=== PATIENT | female | born 1945 | race Caucasian/White ===

== ENCOUNTER 2019-07-03 15:35 | Inpatient (IN) | payer MEDICARE ==
[~2019-07-03] VITALS: Ht 152.4 cm; Wt 125.7 kg
[2019-07-03] MEDS ORDERED: ACETAMINOPHEN 325 MG TAB PO ONE (16:39)
[2019-07-03 16:51] LABS: BILIRUBIN,URINE NEGATIVE (NEGATIVE); CLARITY,URINE SL CLOUDY (CLEAR); COLOR,URINE YELLOW (YELLOW); KETONES,URINE NEGATIVE (NEGATIVE); LEUKOCYTE ESTERASE ,URINE NEGATIVE (NEGATIVE); NITRITE,URINE NEGATIVE (NEGATIVE); PROTEIN,URINE DIPSTICK NEGATIVE (NEGATIVE); URINE UROBILINOGEN 0.2 mg/dL (0.2 - 1)
[2019-07-03 17:05] LABS: BACTERIA,URINE FEW /HPF; EPITHELIAL CELLS,URINE FEW /LPF
[2019-07-03] MEDS ORDERED: METHYLPREDNISOLONE SOD SUCC 125 MG/2ML VIAL IV STA (17:10)
[2019-07-03 17:14] LABS: BASOPHILS # (AUTO) 0.1 (0.0-0.1); BASOPHILS % 0.4 % (0.0-1.0); EOSINOPHILS # (AUTO) 0.1 (0.0-0.4); EOSINOPHILS % 0.3 % (0.0-6.0); HEMATOCRIT 36.2 % (34.2-44.1); HEMOGLOBIN 11.4 g/dL (12.0-16.0); LYMPHOCYTES # (AUTO) 2.3 (1.0-3.2); LYMPHOCYTES % 15.9 % (18.0-39.1); MEAN CORPUSCULAR HEMOGLOBIN 29.7 pg (28-32); MEAN CORPUSCULAR HGB CONC 31.5 g/dL (31-35); MEAN CORPUSCULAR VOLUME 94.3 fL (81-99); MONOCYTES # (AUTO) 1.4 (0.2-0.8); MONOCYTES % 9.2 % (4.4-11.3); NEUTROPHILS # (AUTO) 10.5 (2.1-6.9); NEUTROPHILS % 71.5 % (38.7-80.0); PLATELET COUNT 231 x10e3/uL (140-360); RED BLOOD COUNT 3.84 x10e6/uL (3.6-5.1); RED CELL DISTRIBUTION WIDTH 14.7 % (11.7-14.4)
[2019-07-03] MEDS ORDERED: DOXYCYCLINE 100MG/NS 100ML 100 ML IV SCH (17:15)
[2019-07-03] MEDS: CEFTRIAXONE SOD 1 GM/NS 50 ML 50 ML IV SCH (17:22)
[2019-07-03] MEDS: IPRATROPIUM BROMIDE 0.02% 2.5 ML NEB NEB SCH ×3 (17:30→23:00)
--- NOTE | 2019-07-03 17:30 | NUR ---
NOTIFIED RT ROLF PERES
[2019-07-03] MEDS: DOXYCYCLINE HYCLATE TABLET 100 MG TAB PO SCH (17:31)
[2019-07-03 17:34] LABS: ALBUMIN 2.6 g/dL (3.5-5.0); ALBUMIN/GLOBULIN RATIO 0.7 (0.8-2.0); ANION GAP 14.1 mmol/L (8-16); CALCIUM 9.3 mg/dL (8.4-10.2); CREATININE, SERUM 0.93 mg/dL (0.57-1.11); POTASSIUM 4.1 mmol/L (3.5-5.1)
--- OUTSIDE RECORDS SUMMARY | 2019-07-03 17:40 | XMS REPORT | Summary of Care ---
Author Author [facility] - Health Organization [facility] - Health Address Unknown Phone Unavailable Care Team Providers Care Senior Health Physics Technician Name Role Phone Lorelei Anderson Sandra PCP Encounter Details Care Team Description Date Type Department Doctor Unassigned, [place] [address] [place] [address] 05/01/2019 Orders Only [facility] [address] [place] [address] Allergies Comments Active Allergy Reactions Severity Noted Date Codeine Nausea and/or 02/01/2011 Vomiting Worsens Meniere's Syndrome. Gentamicin Other - See 09/05/2011 comments documented as of this encounter (statuses as of 05/01/2019) Medications End Date Status Medication Sig Dispensed Refills Start Date Active fluticasone-salmeterol Inhale 1 Puff 3 Each 6 (ADVAIR DISKUS) 250-50 every 12 3 mcg/dose inhalation disk (twelve) hours. Active triamterene-hydrochloroth Take by 0 iazid (MAXZIDE-25) mouth daily. 3 37.5-25 mg tablet Active levothyroxine (SYNTHROID) Take 25 mcg 0 25 mcg tablet by mouth every morning. Active montelukast (SINGULAIR) Take 10 mg by 0 10 mg tablet mouth at bedtime. Active ipratropium-albuterol Use 1 Ampule 0 (DUONEB) 0.5 mg-3 mg(2.5 as directed mg base)/3 mL nebulizer every 4 solution (four) hours as needed. Active Naproxen-Esomeprazole Mag Take 2 Tabs 0 (VIMOVO) 500-20 mg TbID by mouth 2 (two) times daily. Active pantoprazole (PROTONIX) Take 40 mg by 0 40 mg EC tablet mouth daily. Active meclizine (ANTIVERT) 12.5 Take 12.5 mg 0 mg tablet by mouth 3 (three) times daily as needed. Active benzonatate (TESSALON) Take 200 mg 0 200 mg capsule by mouth 3 (three) times daily as needed. Active Cholecalciferol, Vitamin Take 1,000 0 D3, (VITAMIN D3) 1,000 Units by unit Cap mouth daily. Active GLUCOSAM/MSM/CHOND/ZXM385 Take by 0 /HYAL mouth daily. (GLUCOSAMINE-CHONDROITIN- MSM ORAL) Active vitamin C with jevon hips Take 1,000 mg 0 (VITAMIN C) 1,000 mg by mouth tablet daily. Active cyclobenzaprine 10 mg Take 1 tablet 90 tablet 0 tabletIndications: Left by mouth 3 9 hip pain (three) times daily. Active aspirin 325 mg Take 1 tablet 60 tablet 0 tabletIndications: Left by mouth 2 9 hip pain (two) times daily. 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 Utility Encounter for adjustment of gastric lap band 11/09/2011 Morbid obesity 12/23/2006 GERD (gastroesophageal reflux disease) Status post gastric banding Generalized osteoarthrosis, unspecified site DJD (degenerative joint disease) of knee Overview: s/p R knee arthoplasty Asthma documented as of this encounter (statuses as of 05/01/2019) Immunizations Name Administration Dates Next Due Influenza Virus Vaccine 06/22/2016 documented as of this encounter Social History Date Tobacco Use Types Packs/Day Years Used Quit: 01/11/1989 Former Smoker Cigarettes 0.5 3 Smokeless Tobacco: Never Used Drinks/Week oz/Week Comments Alcohol Use 0 Standard drinks or equivalent 0.0 Wine- socially - 2 x month Yes Sex Assigned at Date Recorded Not on file Industry Job Start Date Occupation Not on file Not on file Not on file Travel End Travel History Travel Start No recent travel history available. documented as of this encounter Last Filed Vital Signs Not on filedocumented in this encounter Plan of Treatment Care Team Description Date Type Specialty Pasqulae Cordero MD [address] [place] [address] [phone] 05/01/2019 Office Visit Orthopedic Surgery Health Maintenance Due Date Last Done Comments DTaP,Tdap,and Td Vaccines 1963 (1 - Tdap) MAMMOGRAM 1984 COLONOSCOPY 1994 Zoster Recombinant 1994 Vaccine (SHINGRIX) (1 of 2) Medicare Wellness Visit 2009 Osteoporosis Screening 2009 PNEUMOCOCCAL VACCINES 65+ 2009 (1 of 2 - PCV13) INFLUENZA VACCINE (#1) 2019 10/09/2018, 09/11/2016, 06/22/2016 documented as of this encounter Implants Device Identifier Shelf Expiration Date Model / Serial / Lot Implanted Type Area Manufactur er UH1-42-26 / 0 / [id number] Bipolar Head, Lexie Uhr Bipolar BIPOLAR Left: Hip [place] [id number] #Uh1-42-26 - S0 head Implanted: Qty: 1 on 2019 by Pasquale Cordero MD at [facility] 05/08/2023 6260-9-126 / NA / [id number] Head, [place] V40 Cocr Lfit 26mm/0 Head Left: Hip Lexie #6260-9-126 - Sna Implanted: Qty: 1 on 2019 by Pasquale Cordero MD at [facility] 11/05/2023 [id number] / NA / [id number] Stem, [place] Size 4 Accolade Ii Stem Left: Hip Lexie 127deg #[id number] - Sna Implanted: Qty: 1 on 2019 by Pasquale Cordero MD at [facility] documented as of this encounter Procedures Comments Procedure Name Priority Date/Time Associated Diagnosis ASSIGNMENT OF BENEFITS Routine 05/01/2019 9:17 AM CDT documented in this encounter Results Not on filedocumented in this encounter Insurance Type Payer Benefit Subscriber ID Effective Phone Address Plan / Dates Group Medicare Adv [place] [id number] 2016-P [address] [place] [address] documented as of this encounter Advance Directives Patient 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
--- OUTSIDE RECORDS SUMMARY | 2019-07-03 17:40 | XMS REPORT ---
Author Author [facility] Address Unknown Phone Unavailable Care Team Providers Care Dispatch Coordinator Name Role Phone Unavailable Unavailable Problems This patient has no known problems. Allergies, Adverse Reactions, Alerts This patient has no known allergies or adverse reactions. Medications This patient has no known medications.
--- OUTSIDE RECORDS SUMMARY | 2019-07-03 17:40 | XMS REPORT | Summary of Care ---
Author Author [facility] - Health Organization [facility] - Health Address Unknown Phone Unavailable Support Name Relationship Address Phone Miguel Silva [address] [place] [address] Care Team Providers Care Guide Winder Name Role Phone Justin Lorelei Sandra PCP Reason for Referral * Radiology Services (Routine) Referred By Contact Referred To Contact Status Reason Specialty Diagnoses / [place] [address] [place] [address] New Request Diagnostic Diagnoses Radiology Pain P rocedures XR HIPS 2 VW LEFT Reason for Visit * Reason Comments Hip Pain * (Routine) Referred By Contact Referred To Contact Status Reason Specialty Diagnoses / Procedures Dina-Ortho Faculty [address] [place] [phone] [place] [address] [place] [address] Closed ORT-ORTHOPAEDIC Diagnoses SURGERY / History of left Orthopedic hip Surgery hemiarthroplasty 6wk FU Post Op Lefrt Hip Hemiarthroplasty (DOS 03/19/19) [facility] [phone] P rocedures CONSULT/REFERRAL ORTHOPAEDIC SURGERY FOLLOW-UP VISIT Encounter Details Care Team Description Date Type [place] [address] [place] [address] Closed fracture of neck of right femur, initial encounter (Primary Dx); Pain 05/01/2019 Office Visit [facility] Orthopaedic Surgery- [facility] [address] [facility], [address] [address] Allergies Comments Active Allergy Reactions Severity Noted [...] Units by unit Cap mouth daily. Active GLUCOSAM/MSM/CHOND/PQD109 Take by 0 /HYAL mouth daily. (GLUCOSAMINE-CHONDROITIN- [...] respiratory abnormality 01/08/2012 Overview: ICD10 Diagnosis Term Medical Secretary Receptionist Utility Encounter for adjustment of gastric lap [...] Signs Not on filedocumented in this encounter Progress Notes * Cash Steen MD - 05/01/2019 9:30 AM CDT POST OPERATIVE CLINIC NOTE Surgery Date: 2019 Type of Surgical Procedure Performed: Left hip hemiarthroplasty General status: good Patient is here for first follow up after left hip hemiarthroplasty. States that she has been doing well and able to ambulate with her walker without difficulty. Continues to work with PT. Currently has no pain and is pleased with her progr ess. Has not had any falls or trauma to the hip since discharge home. Denies iss ue with incision. Allergies Allergen Reactions Codeine Nausea and/or Vomiting Gentamicin Other - See comments Worsens Meniere's Syndrome. Current Outpatient Medications Medication Sig Dispense Refill aspirin 325 mg tablet Take 1 tablet by mouth 2 (two) times daily. 60 tablet 0 cyclobenzaprine 10 mg tablet Take 1 tablet by mouth 3 (three) times daily. 9 0 tablet 0 benzonatate (TESSALON) 200 mg capsule Take 200 mg by mouth 3 (three) times d aily as needed. Cholecalciferol, Vitamin D3, (VITAMIN D3) 1,000 unit Cap Take 1,000 Units by mouth daily. GLUCOSAM/MSM/CHOND/EDM219/HYAL (FXYREUSYJMO-YJWPBBXVZTH-AED ORAL) Take by m outh daily. ipratropium-albuterol (DUONEB) 0.5 mg-3 mg(2.5 mg base)/3 mL nebulizer solut ion Use 1 Ampule as directed every 4 (four) hours as needed. levothyroxine (SYNTHROID) 25 mcg tablet Take 25 mcg by mouth every morning. meclizine (ANTIVERT) 12.5 mg tablet Take 12.5 mg by mouth 3 (three) times da berto as needed. montelukast (SINGULAIR) 10 mg tablet Take 10 mg by mouth at bedtime. Naproxen-Esomeprazole Mag (VIMOVO) 500-20 mg TbID Take 2 Tabs by mouth 2 (tw o) times daily. pantoprazole (PROTONIX) 40 mg EC tablet Take 40 mg by mouth daily. triamterene-hydrochlorothiazid (MAXZIDE-25) 37.5-25 mg tablet Take by mouth daily. vitamin C with jevon hips (VITAMIN C) 1,000 mg tablet Take 1,000 mg by mouth daily. fluticasone-salmeterol (ADVAIR DISKUS) 250-50 mcg/dose inhalation disk Inhal e 1 Puff every 12 (twelve) hours. 3 Each 6 No current facility-administered medications for this visit. REVIEW OF SYSTEMS (-)=Negative,(+)=Positive Reviewed Physical Exam (-)=Negative,(+)=Positive There were no vitals taken for this visit. There is no height or weight on file to calculate BMI. Constitutional: alert, cooperative, and in no distress Left hip: Incision well healed without erythema or drainage Able to ambulate with slight limp using walker Able to stand without assistive device Can stand on left leg with aid of walker Motor intact to GS/TA SILT to all distributions Radiology Changes of TAMI with interval minimally displaced calcar fracture and some subsid ence of the femoral stem. ASSESSMENT/PLAN Laney Silva is a 74 year old female s/p left hip hemiarthroplasty for FNF. Int erval fracture of the femoral calcar. Patient is progressing well without pain. Will continue to closely watch patient for development of pain or difficulty pro gressing at which time would need to discuss revision of her implant. -Discussed findings with the patient and her in detail -Continue use of of walker for at least another 6 weeks, but may progress to WBA T -OTC medications prn for pain -Discontinue HH PT and transition to self therapy -Encouraged weight loss to help reduce risk of complication if revision surgery is needed -Follow up in 6 weeks with repeat xrays of the hip, sooner with any concerns documented in this encounter Plan of Treatment Care Team Description Date Type Specialty Pasquale Cordero MD [address] [place], [place] [phone] 06/12/2019 Office Visit Orthopedic Surgery Date/Time Name Type Priority Associated Diagnoses 05/01/2019 10:44 AM CDT XR HIPS 2 VW LEFT IMAGING Routine Pain Order Schedule Name Type Priority Associated Diagnoses Expected: 05/01/2019, Expires: 05/01/2020 XR HIPS 2 VW LEFT IMAGING Routine Pain Health Maintenance Due Date Last Done Comments [...] UH1-42-26 / 0 / [id number] Bipolar Head, [place] Uhr Bipolar BIPOLAR Left: Hip [place] [id number] #Uh1-42-26 - S0 head Implanted: Qty: 1 on 2019 by Pasquale Cordero MD at [facility] 05/08/2023 6260-9-126 / NA / [id number] Head, Lexie V40 Cocr Lfit 26mm/0 Head Left: Hip Lexie #6260-9-126 - Sna Implanted: Qty: 1 on 2019 by Pasquale Cordero MD at [facility] 11/05/2023 [id number] / NA / [id number] Stem, Lexie Size 4 Accolade Ii Stem Left: Hip Lexie 127deg #[id number] - Sna Implanted: Qty: 1 on 2019 by Pasquale Cordero MD at [facility] documented as of this encounter Results Not on filedocumented in this encounter Visit Diagnoses Diagnosis Closed fracture of neck of right femur, initial encounter - Primary Pain Generalized pain documented in this encounter Insurance Type Payer Benefit Subscriber ID Effective Phone Address Plan / Dates Group Medicare Adv [place] [id number] 2016-P [address] [place] [address] (Home) [place] [address] documented as of this encounter Advance Directives 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
--- OUTSIDE RECORDS SUMMARY | 2019-07-03 17:40 | XMS REPORT | Summary of Care ---
Author Author [facility] - Health Organization [facility] - Health Address Unknown Phone Unavailable Care Team Providers Care Sales Assistants And Salespersons Name Role Phone Justin Lorelei Sandra PCP Reason for Referral * Radiology Services (Routine) Referred By Contact Referred To Contact Status Reason Specialty Diagnoses / [place] [address] [place] [address] New Request Diagnostic Diagnoses Radiology Pain P rocedures XR HIPS 2 VW LEFT Reason for Visit * Reason Comments Hip Pain * (Routine) Referred By Contact Referred To Contact Status Reason Specialty Diagnoses / Procedures [facility] [address] [place] [phone] [place] [address] [place] [address] Closed ORT-ORTHOPAEDIC Diagnoses SURGERY / History of left Orthopedic hip Surgery hemiarthroplasty 6wk FU Post Op Lefrt Hip Hemiarthroplasty (DOS 03/19/19) [facility] [phone] P rocedures CONSULT/REFERRAL ORTHOPAEDIC SURGERY FOLLOW-UP VISIT Encounter Details Care Team Description Date [place] [address] [place] [address] Closed fracture of neck of right femur, initial encounter (Primary Dx); Pain 05/01/2019 Office Visit [facility] Orthopaedic Surgery- [facility] [address] [facility], [address] [address] Allergies Comments Active Allergy Reactions [...] Units by unit Cap mouth daily. Active GLUCOSAM/MSM/CHOND/BWK478 Take by 0 /HYAL mouth daily. 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 GLUCOSAM/MSM/CHOND/PEF842/HYAL (TXWFVECRUHL-SZSZKQPUHJI-BGS ORAL) Take by m outh daily. ipratropium-albuterol (DUONEB) 0.5 mg-3 mg(2.5 mg base)/3 mL nebulizer solut ion Use 1 Ampule as directed every 4 (four) hours as needed. levothyroxine (SYNTHROID) 25 mcg tablet Take 25 mcg by mouth every morning. meclizine (ANTIVERT) 12.5 mg tablet Take 12.5 mg by mouth 3 (three) times da betro as needed. montelukast (SINGULAIR) 10 mg tablet [...] Description Date Type Specialty Pasquale Cordero MD [address] [place], [place] [phone] 06/12/2019 Office Visit Orthopedic Surgery Date/Time Name [...] UH1-42-26 / 0 / [id number] Bipolar Head, [place] Uhr Bipolar BIPOLAR Left: Hip [place] [id number] #Uh1-42-26 - S0 head Implanted: Qty: 1 on 2019 by Pasquale Cordero MD at [facility] 05/08/2023 6260-9-126 / NA / [id number] Head, Lexie V40 Cocr Lfit 26mm/0 Head Left: Hip Lexie #6260-9-126 - Sna Implanted: Qty: 1 on 2019 by Pasquale Cordero MD at [facility] 11/05/2023 [id number] / NA / [id number] Stem, Lexie Size 4 Accolade Ii Stem Left: Hip Lexie 127deg #[id number] - Sna Implanted: Qty: 1 on 2019 by Pasquale Cordero MD at [facility] documented as of this encounter Results Not on filedocumented in this encounter Visit Diagnoses Diagnosis Closed fracture of neck of right femur, initial encounter - Primary Pain Generalized pain documented in this encounter Insurance Type Payer Benefit Subscriber ID Effective Phone Address Plan / Dates Group Medicare Adv [place] [id number] 2016-P [address] [place] [address] (Home) [place] [address] documented as of this encounter Advance Directives Patient Defence Intelligence Analyst Explanation Type Date Recorded Advance Directives and Living Will Power of Mud Car Worker
--- OUTSIDE RECORDS SUMMARY | 2019-07-03 17:40 | XMS REPORT | Summary of Care ---
Author Author [facility] - Health Organization [facility] - Health Address Unknown Phone Unavailable Care Team Providers Care Filtering Machine Tender Helper Name Role Phone Justin Loreleimehreen Flores PCP Reason for Visit * Radiology Services (Routine) Referred By Contact Referred To Contact Status Reason Specialty Diagnoses / [place] [address] [place] [address] New Request Diagnostic Diagnoses Radiology Pain P rocedures XR HIPS 2 VW LEFT Encounter Details Care Team Description Date Type [place] [address] [place] [address] Arrived 05/01/2019 [facility] Orthopedics Encounter at [facility] Radiology [address] [place] [phone] Allergies Comments Active Allergy Reactions Severity Noted Date Codeine Nausea and/or 02/01/2011 Vomiting Worsens Meniere's Syndrome. Gentamicin Other - See 09/05/2011 comments documented as of this encounter (statuses as of 05/02/2019) Medications End Date Status Medication Sig Dispensed [...] Units by unit Cap mouth daily. Active GLUCOSAM/MSM/CHOND/HRZ493 Take by 0 /HYAL mouth daily. (GLUCOSAMINE-CHONDROITIN- [...] as of this encounter (statuses as of 05/02/2019) Active Problems Problem Noted Date Femoral neck fracture 03/17/2019 Essential hypertension, benign 04/21/2012 Dyspnea and respiratory abnormality 01/08/2012 Overview: ICD10 Diagnosis Term Help Desk Consultant Utility Encounter for adjustment of gastric lap band 11/09/2011 Morbid obesity 12/23/2006 GERD (gastroesophageal reflux disease) Status post gastric banding Generalized osteoarthrosis, unspecified site DJD (degenerative joint disease) of knee Overview: s/p R knee arthoplasty Asthma documented as of this encounter (statuses as of 05/02/2019) Immunizations Name Administration Dates Next Due Influenza [...] Description Date Type Specialty Pasquale Cordero MD [address] [place] [address] [phone] 06/12/2019 Office Visit Orthopedic Surgery Date/Time Name Type Priority Associated Diagnoses 05/01/2019 10:44 AM CDT XR HIPS 2 VW LEFT IMAGING Routine Pain Order Schedule Name Type Priority Associated Diagnoses 1 Occurrences starting 05/01/2019 until 05/01/2019 XR HIPS 2 VW LEFT IMAGING Routine [...] UH1-42-26 / 0 / [id number] Bipolar Head, [place] Uhr Bipolar BIPOLAR Left: Hip [place] [id number] #Uh1-42-26 - S0 head Implanted: Qty: 1 on 2019 by Pasquale Cordero MD at [facility] [place] [facility] 05/08/2023 6260-9-126 / NA / [id number] Head, Lexie V40 Cocr Lfit 26mm/0 Head Left: Hip Lexie #6260-9-126 - Sna Implanted: Qty: 1 on 2019 by Pasquale Cordero MD at [facility] 11/05/2023 [id number] / NA / [id number] Stem, Lexie Size 4 Accolade Ii Stem Left: Hip [place] 127deg #[id number] - Sna Implanted: Qty: 1 on 2019 by Pasquale Cordero MD at [facility] [place] [facility] documented as of this encounter Results Not on filedocumented in this encounter Visit Diagnoses Diagnosis Pain Generalized pain documented in this encounter Insurance Type Payer Benefit Subscriber ID Effective Phone Address Plan / Dates Group Medicare Adv [place] [id number] 2016-P [address] [place] [address] (Home) [place] [address] documented as of this encounter Advance Directives Patient Transportation Superintendent Explanation Type Date Recorded Advance Directives and Living Will Power of Artist Blacksmith
--- OUTSIDE RECORDS SUMMARY | 2019-07-03 17:40 | XMS REPORT | Summary of Care ---
Author Author [facility] - Health Organization [facility] - Health Address Unknown Phone Unavailable Care Team Providers Care Skein Winder Name Role Phone Lorelei Anderson Sandra PCP Reason for Visit * Reason Comments Notification Encounter Details Care Team Description Date Type Department Pasquale Cordero MD [address] [place], [place] [phone] Notification 05/01/2019 Telephone [facility] Orthopaedic Surgery- [facility] [address] [facility] [place], [address] [place] [address] Allergies Comments Active Allergy Reactions Severity Noted Date Codeine Nausea and/or 02/01/2011 Vomiting Worsens Meniere's Syndrome. Gentamicin Other - See 09/05/2011 comments documented as of this encounter (statuses as of 05/04/2019) Medications End Date Status Medication Sig Dispensed [...] Units by unit Cap mouth daily. Active GLUCOSAM/MSM/CHOND/VOG647 Take by 0 /HYAL mouth daily. 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 Utility Encounter for adjustment of gastric lap band 11/09/2011 Morbid obesity 12/23/2006 GERD (gastroesophageal reflux disease) Status post gastric banding Generalized osteoarthrosis, unspecified site DJD (degenerative joint disease) of knee Overview: s/p R knee arthoplasty Asthma documented as of this encounter (statuses as of 05/04/2019) Immunizations Name Administration Dates Next Due Influenza [...] Description Date Type Specialty Pasquale Cordero MD [address] [place], [place] [address] 06/12/2019 Office Visit Orthopedic Surgery Health Maintenance Due [...] UH1-42-26 / 0 / [id number] Bipolar Head, [place] Uhr Bipolar BIPOLAR Left: Hip Lexie [id number] #Uh1-42-26 - S0 head Implanted: Qty: 1 on 2019 by Pasquale Cordero MD at [facility] [place] [facility] 05/08/2023 6260-9-126 / NA / [id number] Head, Lexie V40 Cocr Lfit 26mm/0 Head Left: Hip Lexie #6260-9-126 - Sna Implanted: Qty: 1 on 2019 by Pasquale Cordero MD at [facility] 11/05/2023 [id number] / NA / [id number] Stem, Lexie Size 4 Accolade Ii Stem Left: Hip [place] 127deg #1519-8502 - Sna Implanted: Qty: 1 on 2019 by Pasquale Cordero MD at [facility] [place] [facility] documented as of this encounter Results Not on filedocumented in this encounter Insurance Type Payer Benefit Subscriber ID Effective Phone Address Plan / Dates Group Medicare Adv [place] [id number] 2016-P [address] [facility] [place] [address] documented as of this encounter Advance Directives Patient Timber Cruiser Explanation Type Date Recorded Advance Directives and Living Will Power of Director Of Financial Aid
[2019-07-03] MEDS ORDERED: IPRATROPIUM BROMIDE 0.02% 2.5 ML NEB ONE (17:43)
[2019-07-03] MEDS: ALBUTEROL SULF 0.083% NEB SOLN 3 ML NEB NEB SCH ×3 (17:51→23:00)
[2019-07-03 18:01] LABS: INR 1.05; PARTIAL THROMBOPLASTIN TIME 34.4 seconds (23.8-35.5); PROTHROMBIN TIME 14.2 seconds (11.9-14.5)
[2019-07-03] MEDS: ENOXAPARIN SOD INJ 40 MG/0.4 ML SYR SC SCH (18:11)
--- NOTE | 2019-07-03 18:13 | Diagnostic Imaging Report ---
EXAMINATION: PA and lateral views of the chest. COMPARISON: None CLINICAL HISTORY: Sepsis DISCUSSION: Lines/tubes: None. Lungs: Central venous congestion. No pneumonia. Pleura: No pleural effusion or pneumothorax. Heart and mediastinum: The cardiomediastinal silhouette is normal. Bones and soft tissues: No acute bony abnormalities. IMPRESSION: No acute cardiopulmonary abnormalities. Signed by: Dr. Roger Acosta M.D. on 07/03/2019 6:10 PM
[2019-07-03 18:15] LABS: CREATINE KINASE MB 2.3 ng/mL (0-5.0)
[2019-07-03 20:00] VITALS: BP 174/72
[2019-07-03 20:51] LABS: EOSINOPHILS % (MANUAL) 1 % (0-7); HYPOCHROMASIA SLIGHT; LYMPHOCYTES % (MANUAL) 15 % (19-48); MONOCYTES % (MANUAL) 8 % (3.4-9.0); NEUTROPHILS % (MANUAL) 76 % (40-74); PLATELET ESTIMATE ADEQUATE; RBC MORPHOLOGY COMMENT NORMAL
[2019-07-03 20:52] LABS: PLATELET MORPHOLOGY COMMENT NORMAL
[2019-07-03 23:33] VITALS: BP 174/72
[2019-07-03 23:39] VITALS: BP 174/72
[2019-07-04] VITALS (7 sets, daily range): BP systolic 134–169; BP diastolic 63–74
[2019-07-04] MEDS ORDERED: MONTELUKAST SOD10 MG PO (00:18)
[2019-07-04] MEDS ORDERED: PANTOPRAZOLE SO40 MG PO (00:18)
[2019-07-04] MEDS ORDERED: ALENDRONATE SOD70 MG PO (00:18)
[2019-07-04] MEDS ORDERED: LEVOTHYROXINE50 MCG PO (00:18)
[2019-07-04] MEDS ORDERED: SYMBICORT 16010.2 GM INH (00:18)
[2019-07-04] MEDS: METHYLPREDNISOLONE SOD SUCC 125 MG/2ML VIAL IV SCH ×3 (02:00→18:19)
[2019-07-04] MEDS: DOXYCYCLINE HYCLATE TABLET 100 MG TAB PO SCH ×2 (05:47→18:16)
[2019-07-04 06:01] LABS: BASOPHILS % 0.2 % (0.0-1.0); EOSINOPHILS % 0.3 % (0.0-6.0); HEMOGLOBIN 10.9 g/dL (12.0-16.0); LYMPHOCYTES # (AUTO) 1.1 (1.0-3.2); LYMPHOCYTES % 11.7 % (18.0-39.1); MEAN CORPUSCULAR HEMOGLOBIN 29.9 pg (28-32); MEAN CORPUSCULAR HGB CONC 32.1 g/dL (31-35); MEAN CORPUSCULAR VOLUME 93.4 fL (81-99); MONOCYTES # (AUTO) 0.2 (0.2-0.8); MONOCYTES % 2.2 % (4.4-11.3); NEUTROPHILS % 82.2 % (38.7-80.0); PLATELET COUNT 221 x10e3/uL (140-360); RED BLOOD COUNT 3.64 x10e6/uL (3.6-5.1); RED CELL DISTRIBUTION WIDTH 14.6 % (11.7-14.4)
[2019-07-04 06:18] LABS: ANION GAP 14.6 mmol/L (8-16); BLOOD UREA NITROGEN 25 mg/dL (7-26); BUN/CREATININE RATIO 28 (6-25); CALCIUM 8.6 mg/dL (8.4-10.2); CARBON DIOXIDE 22 mmol/L (22-29); CHLORIDE 105 mmol/L (98-107); EST GLOMERULAR FILTRATION RATE > 60 ML/MIN (60-); GLUCOSE 206 mg/dL (74-118); POTASSIUM 4.6 mmol/L (3.5-5.1); SODIUM 137 mmol/L (136-145)
[2019-07-04 06:49] LABS: CREATINE KINASE MB 2.2 ng/mL (0-5.0)
[2019-07-04] MEDS: ALBUTEROL SULF 0.083% NEB SOLN 3 ML NEB NEB SCH ×5 (07:00→23:00)
[2019-07-04] MEDS: IPRATROPIUM BROMIDE 0.02% 2.5 ML NEB NEB SCH ×4 (07:00→18:37)
--- NOTE | 2019-07-04 07:08 | NUR ---
pt alert resp even and unlabored at this time, no distress noted, call light in reach will cont to monitor.
[2019-07-04 13:52] LABS: CREATINE KINASE MB 2.2 ng/mL (0-5.0)
--- NOTE | 2019-07-04 14:04 | Progress Note ---
DATE: CHIEF COMPLAINT: Shortness of breath and wheezing with dry cough. SUBJECTIVE: The patient is seen lying in bed with improving shortness of breath and wheezing. She reports dry cough and increased shortness of breath with ambulation or exertion, but reports overall is feeling better. She denies any fever, chills, nausea, vomiting, night sweats, or change in bowel habits. OBJECTIVE: VITAL SIGNS: Temperature 96.8, pulse is 60, respirations 18, blood pressure is 145/63, pulse ox is 97% on 2 L of O2. GENERAL: Fatigue. HEENT: Normocephalic, atraumatic. NECK: Midline and supple. CARDIOVASCULAR: Regular rate and rhythm. LUNGS: Wheezing throughout. ABDOMEN: Soft and nontender, obese. NEURO: Alert, awake, oriented x3. MUSCULOSKELETAL: Moves all extremities. No edema noted. SKIN: Grossly intact. LABORATORY DATA: WBC 9.67, hemoglobin is 10.9, hematocrit is 34, platelet is 221. Sodium is 137, potassium is 4.6, creatinine is 0.90, blood glucose is 200. Troponins have been negative x2. BNP is 161. UA is negative. Leukocyte with RBCs. Chest x-ray, no acute cardiopulmonary abnormalities. Central venous congestion, but no pneumonia. IMPRESSION AND PLAN: 1. Acute asthma exacerbation. Chest x-ray is negative. She is started on nebs, Solu-Medrol. We will decrease to 40 mg q.12. Continue doxycycline and Rocephin for empiric management. 2. Mild leukocytosis. Lactic acid within normal limits. Blood culture and urine culture pending. Also awaiting on [facility] cultures. Continue antibiotics. 3. Elevated blood pressure. The patient denies any history of high blood pressure. We will treat as needed with clonidine. 4. Elevated blood sugar, likely due to steroid use, but we will check hemoglobin A1c to rule out diabetes. 5. History of Meniere disease, stable. 6. Hypothyroidism. We will continue thyroid medicine. 7. Gastroesophageal reflux disease. We will continue Pepcid. 8. History of OA, she takes Fosamax every seven days. 9. Morbid obesity with BMI of 54. Discussed lifestyle modification. 10. Deep vein thrombosis prophylaxis. Continue Lovenox. Dictated by THELMA Hdz Yiching MD CORETTA Hutton/NEL /[id number]
[2019-07-04] MEDS: ENOXAPARIN SOD INJ 40 MG/0.4 ML SYR SC SCH (18:16)
[2019-07-04] MEDS: CEFTRIAXONE SOD 1 GM/NS 50 ML 50 ML IV SCH (18:16)
[2019-07-04] MEDS ORDERED: SODIUM CHLORIDE 0.9% 250ML 250 ML ONE (18:30)
--- NOTE | 2019-07-04 19:25 | NUR ---
Completed bedside reporting with morning nurse. Patient alert to name. Lying in bed HOB 45 degrees. Denies pain at this time. Call mckeon within reach. Bed low and locked. Will continue to monitor.
--- NOTE | 2019-07-04 19:42 | NUR ---
report given to oncoming nurse . pt stable at shift change.
[2019-07-04] MEDS ORDERED: DEXTROSE 50% SYRINGE 50 ML IV PRN (20:30)
[2019-07-04] MEDS: INSULIN LISPRO 100 UNIT/1 ML 3ML VIAL SQ SCH (21:00)
[2019-07-05] VITALS: BP 166/73
[2019-07-05] MEDS ORDERED: METHYLPREDNISOLONE SOD SUCC 40 MG/ML VIAL 1ML IV SCH (01:00)
[2019-07-05] MEDS: ALBUTEROL SULF 0.083% NEB SOLN 3 ML NEB NEB SCH ×4 (03:00→15:30)
[2019-07-05] MEDS: IPRATROPIUM BROMIDE 0.02% 2.5 ML NEB NEB SCH ×3 (03:00→13:00)
[2019-07-05 04:00] VITALS: BP 154/66
[2019-07-05] MEDS: DOXYCYCLINE HYCLATE TABLET 100 MG TAB PO SCH ×2 (05:52→16:29)
[2019-07-05] MEDS ORDERED: ALENDRONATE SODIUM 70 MG TAB PO SCH (06:00)
[2019-07-05] MEDS ORDERED: LEVOTHYROXINE SODIUM 75 MCG TAB PO SCH (06:00)
--- NOTE | 2019-07-05 06:29 | NUR ---
Pt lying in bed, HOB 45 degrees with eyes closed. RR even and nonlabored. No acute distress noted
[2019-07-05] MEDS: INSULIN LISPRO 100 UNIT/1 ML 3ML VIAL SQ SCH ×2 (07:30→11:30)
[2019-07-05] MEDS ORDERED: PANTOPRAZOLE SOD 40 MG TABEC PO SCH (07:30)
[2019-07-05 08:00] VITALS: BP 188/82
[2019-07-05 08:08] VITALS: BP 154/66
[2019-07-05] MEDS: CLONIDINE HCL 0.1 MG TAB PO PRN ×2 (09:00→16:29)
[2019-07-05] MEDS ORDERED: MONTELUKAST SODIUM 10 MG TAB PO SCH (09:00)
[2019-07-05 12:26] VITALS: BP 164/75
[2019-07-05] MEDS ORDERED: LEVAQUIN500 MG PO (15:23)
--- NOTE | 2019-07-05 15:55 | Discharge Summary ---
PRIMARY CARE PHYSICIAN: Dr. Anderson at [facility]. FINAL DIAGNOSES: 1. Acute asthma exacerbation. 2. Mild leukocytosis. 3. Elevated blood pressure. 4. Elevated blood sugar. 5. History of Meniere disease. 6. Hypothyroidism. 7. Gastroesophageal reflux disease. 8. History of osteoarthritis. 9. Morbid obesity with BMI of 54. 10. Recent history of urinary tract infection with Escherichia coli. CONSULTANTS: None. PROCEDURES: None. HISTORY: Per HPI. HOSPITAL COURSE: This is a pleasant 74-year-old female, presented with increased shortness of breath and wheezing with a history of asthma. She was recently seen at [facility] ER and was given amoxicillin for a possible UTI and was discharged home to follow up with her PCP. She presented here at [facility] with complaints of increased shortness of breath. She was started on steroids, doxycycline, and Rocephin for empiric treatment. She remained afebrile here. Chest x-ray was negative for pneumonia. Urine and blood cultures were negative. We received urine culture from [facility] from previous visit to the ER. Urine culture was positive for Escherichia coli. Today, she is feeling much better, still has shortness of breath, but significantly improved. She wants to go home, so we will discharge home on Levaquin x3 days as per sensitivity for Escherichia coli. We will wean off with Medrol Refugio and she will continue with her neb treatments at home. PHYSICAL EXAMINATION: VITAL SIGNS: Temperature 97.4, pulse is 65, respirations 18, blood pressure is 164/75, and pulse ox is 98% on room air. GENERAL: No acute distress. HEENT: Normocephalic, atraumatic. NECK: Midline. Supple. CARDIOVASCULAR: Regular rate and rhythm. LUNGS: Decreased breath sounds with wheezing. ABDOMEN: Soft and nontender. NEUROLOGIC: Alert, awake, and oriented x3. MUSCULOSKELETAL: Moves all extremities. Mild edema noted in bilateral lower extremities. SKIN: Grossly intact. CONDITION AT DISCHARGE: Stable and improved. Discontinue medications. Resume home medication in addition to Levaquin and Medrol Refugio. Followup with PCP next week for re-evaluation of blood sugar and blood pressure. She discussed about starting blood pressure medication, but would like to wait to see her primary care doctor as she does not have any history of high blood pressure and the increased blood pressure at this time may be due to stress and anxiety of being here and elevated blood sugar. Hemoglobin A1c is 6.0. We will have see her PCP next week. Total time of discharge is 35 minutes. Dictated by THELMA Hdz Sharonching Roger Carey MD MY/MODL /[id number] cc: MD Ronal[facility]
[2019-07-05 16:25] VITALS: BP 172/76
--- NOTE | 2019-07-06 13:24 | History and Physical ---
PRIMARY CARE PHYSICIAN: Dr. Lorelei Anderson with [facility] [place] CHIEF COMPLAINT: Shortness of breath and fever. HISTORY OF PRESENT ILLNESS: This is a 74-year-old female with past medical history of asthma, Meniere's disease, osteoarthritis, and hypothyroidism, presented to the ER with complaints of shortness of breath and fever. She was recently seen at [facility] Emergency Department for complaints of similar reason, shortness of breath, and cough. She was treated for asthma exacerbation and urinary tract infection. She was sent home with Augmentin and neb treatment. She continued to have worsening shortness of breath. Hence she visited her PCP today for re-evaluation. She was sent to [facility] for further evaluation. She denies any nausea, vomiting, hemoptysis, dizziness, fever, dysuria, or hematuria. She does not have any edema in the lower extremity, no history of hypertension, but is noted to have elevated blood pressure upon assessment in the ER. We will admit the patient for further evaluation of her shortness of breath and fever. PAST MEDICAL HISTORY: 1. Asthma. 2. Meniere disease. 3. Osteoarthritis. 4. Hypothyroidism. 5. Morbid obesity. PAST SURGICAL HISTORY: She had 3 knee replacements, two on the right. She had right shoulder surgery, left hip replacement, hand surgery. She had lap band and reversal. She had deviated septum repair, tonsillectomy, appendectomy, and tubal ligation. FAMILY MEDICAL HISTORY: She reports father had diabetes. Mother had kidney disease and hypertension. SOCIAL HISTORY: She denies any tobacco, alcohol, or illicit drug use. ALLERGIES: SHE IS ALLERGIC TO CODEINE, . REVIEW OF SYSTEMS: GENERAL: No head trauma. HEENT: No mouth sores. LUNGS: Increased wheezing, shortness of breath and cough. CARDIOVASCULAR: No chest pain or palpitations. GI: No nausea or vomiting. NEURO: Alert and oriented. MUSCULOSKELETAL: No edema. PHYSICAL EXAMINATION: VITAL SIGNS: Temperature 97.7, pulse is 82, respirations 22, blood pressure 185/78, pulse ox 100% on room air. IMAGING: Chest x-ray, unremarkable. IMPRESSION AND PLAN: 1. Acute asthma exacerbation. Continue on IV antibiotics, doxycycline, Rocephin, DuoNeb, and Solu-Medrol. Chest x-ray is negative for pneumonia. 2. Leukocytosis. She is afebrile at the moment. Culture have been sent, blood and urine cultures. 3. Recent history of urinary tract infection. . We will repeat urine culture and continue Rocephin. 4. Elevated blood pressure. She denies any history of high blood pressure. We will start clonidine p.o. p.r.n. 5. History of . 6. History of osteoarthritis. We will treat pain as needed. 7. Hypothyroidism. We will levothyroxine. 8. Morbid obesity. We will discuss lifestyle modification with BMI of 48. 9. Deep venous thrombosis prophylaxis, is on Lovenox. Dictated by THELMA Hdz Geovany Carey MD MY/MODL /[id number]
== END 2019-07-05 16:42 | disposition home or self-care (01) | DRG 202 ==
LOC: ER 15:35 → ERHOLD 17:25 → MED/SURG2 20:17
PROVIDERS: ADMIT Internal Medicine; ATTEND Internal Medicine
DX: J45.901 Unspecified asthma with (acute) exacerbation (principal); N39.0 Urinary tract infection, site not specified; M19.90 Unspecified osteoarthritis, unspecified site; E03.9 Hypothyroidism, unspecified; E66.01 Morbid (severe) obesity due to excess calories; Z68.36 Body mass index [BMI] 36.0-36.9, adult; K21.9 Gastro-esophageal reflux disease without esophagitis; R03.0 Elevated blood-pressure reading, without diagnosis of hypertension; R73.9 Hyperglycemia, unspecified; B96.20 Unspecified Escherichia coli [E. coli] as the cause of diseases classified elsewhere
CPT/HCPCS: 36415; 71046; 80048; 80053; 81001; 82550; 82553; 82948; 83036; 83605; 83880; 84484; 85025; 85610; 85730; 87040; 87070; 87086; 87205; 93005; 94640; 99284; J0696; J1650; J2920; J2930; J7050